=== PATIENT | male | born 1955 ===

== ENCOUNTER 2019-09-16 23:05 | Emergency (ER) | payer OTHER ==
[~2019-09-16] VITALS: Ht 167.6 cm; Wt 99.8 kg
[2019-09-16 23:12] VITALS: Ht 167.6 cm; Wt 99.8 kg
[2019-09-16 23:41] VITALS: BP 152/94
== END 2019-09-16 23:41 | disposition other institution (70) ==
LOC: ED 23:05
DX: Z02.89 Encounter for other administrative examinations (principal)